=== PATIENT | female | born 1960 | race Two or more races ===

== ENCOUNTER 2017-05-28 06:14 | Day surgery (SDC) | payer OTHER ==
[~2017-05-28] VITALS: Ht 167.6 cm; Wt 68.0 kg
[2017-05-28] MEDS ORDERED: MORPHINE SULFATE 4 MG/ML SYR IM/IVP PRN (07:20)
[2017-05-28] MEDS ORDERED: ACETAMINOPHEN/CODEINE 300/30MG 1 TAB PO PRN (07:20)
[2017-05-28] MEDS ORDERED: ONDANSETRON 4 MG/2 ML VIAL IVP PRN ×2 (07:20→09:30)
[2017-05-28] MEDS ORDERED: IBUPROFEN 800 MG TAB PO PRN (07:20)
[2017-05-28] MEDS ORDERED: BIOT10002 PO (08:42)
[2017-05-28] MEDS ORDERED: VITD1000 PO (08:42)
[2017-05-28] MEDS ORDERED: ATOR40TA PO (08:42)
[2017-05-28] MEDS ORDERED: LIDOCAINE MPF 1% 50 MG/5 ML VIAL INJ ONE (09:09)
[2017-05-28] MEDS ORDERED: PROPOFOL 200 MG/20 ML VIAL IV ONE ×3 (09:09)
[2017-05-28] MEDS ORDERED: SEVOFLURANE 250 ML BTL INH ONE (09:09)
[2017-05-28] MEDS ORDERED: MIDAZOLAM 2 MG/2 ML VIAL ONE (09:25)
[2017-05-28] MEDS ORDERED: HYDROmorphone PFS 2 MG/ML SYR IVP PRN (09:30)
== END 2017-05-28 11:10 | disposition home or self-care (01) ==
LOC: MMU 06:14 → MDS 06:14
PROVIDERS: ATTEND Obstetrics & Gynecology
DX: N95.0 Postmenopausal bleeding (principal); I25.10 Atherosclerotic heart disease of native coronary artery without angina pectoris; I12.9 Hypertensive chronic kidney disease with stage 1 through stage 4 chronic kidney disease, or unspecified chronic kidney disease; N18.9 Chronic kidney disease, unspecified; E11.22 Type 2 diabetes mellitus with diabetic chronic kidney disease; E66.3 Overweight; D64.9 Anemia, unspecified; K21.9 Gastro-esophageal reflux disease without esophagitis; J45.909 Unspecified asthma, uncomplicated; I63.9 Cerebral infarction, unspecified; F03.90 Unspecified dementia, unspecified severity, without behavioral disturbance, psychotic disturbance, mood disturbance, and anxiety; Z98.51 Tubal ligation status; Z98.890 Other specified postprocedural states; Z79.899 Other long term (current) drug therapy; F17.210 Nicotine dependence, cigarettes, uncomplicated
CPT/HCPCS: 58120; J2001; J2250; J2704; J7120